=== PATIENT | male | born 1995 | race Hispanic/Latino ===

== ENCOUNTER 2024-06-18 09:19 | Emergency (ER) | payer OTHER ==
[~2024-06-18] VITALS: Ht 190.5 cm; Wt 104.3 kg
[2024-06-18] MEDS ORDERED: IBUP-2077 PO (10:34)
[2024-06-18 11:10] VITALS: BP 133/81; PULSE 79; RESP 20; O2SAT 99
== END 2024-06-18 11:10 ==
LOC: EEVIPCON 09:19 → EDH 09:19
DX: S93.491A Sprain of other ligament of right ankle, initial encounter (principal); X50.1XXA Overexertion from prolonged static or awkward postures, initial encounter; Y93.89 Activity, other specified; Y92.89 Other specified places as the place of occurrence of the external cause; Y99.8 Other external cause status
CPT/HCPCS: 73600